=== PATIENT | female | born 1990 | race Two or more races ===

== ENCOUNTER 2017-09-01 11:00 | Observation (INO) | payer SELFPAY ==
[~2017-09-01] VITALS: Ht 157.5 cm; Wt 78.9 kg
[2017-09-01] MEDS ORDERED: LACTATED RINGER'S 1,000 ML IV ONE (11:57)
[2017-09-01] MEDS ORDERED: LACTATED RINGER'S 1,000 ML IV SCH (11:57)
[2017-09-01] MEDS ORDERED: NIF10C PO (12:00)
[2017-09-01] MEDS ORDERED: TERBUTALINE SULFATE 1 MG/ML 1ML VIAL SC ONE (12:00)
[2017-09-01] MEDS ORDERED: PREN-129 PO (12:00)
[2017-09-01] MEDS: TERBUTALINE SULFATE 1 MG/ML 1ML VIAL SC SCH ×2 (12:10→12:50)
[2017-09-01] MEDS ORDERED: BETAMETHASONE ACET (6MG/ML) 5ML VIAL ONE (14:22)
[2017-09-01] MEDS ORDERED: BETAMETHASONE ACET (6MG/ML) 5ML VIAL IM ONE (14:30)
== END 2017-09-01 14:55 | disposition home or self-care (01) | DRG 778 ==
LOC: LDRP 11:00
PROVIDERS: ADMIT Obstetrics & Gynecology; ATTEND Obstetrics & Gynecology
DX: O60.03 Preterm labor without delivery, third trimester (principal); O26.893 Other specified pregnancy related conditions, third trimester; O62.9 Abnormality of forces of labor, unspecified; R11.0 Nausea; Z3A.32 32 weeks gestation of pregnancy
CPT/HCPCS: 59025; 81002; 96372; G0378; J0702; J3105

== ENCOUNTER 2019-10-08 13:56 | Emergency (ER) | payer MEDICAID ==
[~2019-10-08] VITALS: Ht 167.6 cm; Wt 81.6 kg
[~2019-10-08 13:56] MED LIST: NIF10C PO; PREN-129 PO
[2019-10-08] MEDS ORDERED: SODIUM CHLORIDE 0.9% 1,000 ML IV ONE ×2 (14:01)
[2019-10-08] MEDS ORDERED: ETOMIDATE (2MG/ML) 20ML VIAL IV ONE ×3 (14:13→14:30)
[2019-10-08] MEDS ORDERED: MIDAZOLAM DRIP 50 mg/50mL 50 ML IV ONE (14:14)
[2019-10-08] MEDS ORDERED: SUCCINYLCHOLINE CHLORIDE 20 MG/ML 10ML VIAL IV ONE ×2 (14:20→14:30)
[2019-10-08] MEDS ORDERED: MIDAZOLAM DRIP 50 mg/50mL 50 ML IV SCH (14:24)
[2019-10-08 14:53] LABS: Basophils # (auto) 0.1 uL; Basophils % (auto) 0.4 % (0.0-2.0); Eosinophils # (auto) 0 uL; Hematocrit 40.5 % (36.0-46.0); Hemoglobin 13.5 g/dL (12.2-16.2); Lymphocytes # (auto) 0.7 uL; Lymphocytes % (auto) 4.3 % (10.0-50.0); Mean Corpuscular Hgb Conc. 33.2 g/dL (32.0-36.0); Mean Corpuscular Volume 90.2 fL (80.0-100.0); Monocytes # (auto) 0.5 uL; Neutrophils % (auto) 92.3 % (37.0-80.0); Platelet Count (auto) 281 10^3/uL (140-450); Red Blood Cells 4.49 10^6/uL (4.0-5.20); Red Cell Distribution Width 13.5 % (11.8-14.3); White Blood Cell 17.4 10^3/uL (4.4-10.8)
[2019-10-08 15:14] LABS: Albumin 3.8 g/dL (3.4-5.0); Anion Gap 9 (5-15); Blood Urea Nitrogen 7 mg/dL (7-18); Calcium 7.8 mg/dL (8.5-10.1); Carbon Dioxide 22 mmol/L (21-32); Chloride 104 mmol/L (98-107); Glucose 159 mg/dL (74-106); Potassium 3.7 mmol/L (3.5-5.1); Sodium 135 mmol/L (136-145)
[2019-10-08 15:20] LABS: Alanine Aminotransferase 32 U/L (13-56); Alkaline Phosphatase 72 U/L (45-117); Aspartate Aminotransferase 19 U/L (15-37); BUN/Creatinine Ratio 10.8; Bilirubin, Total 0.5 mg/dL (0.2-1.0); GFR African American 141 mL/min; GFR Non-African American 116 mL/min; Total Protein 7.7 g/dL (6.4-8.2)
[2019-10-08 15:28] VITALS: BP 150/78
== END 2019-10-08 15:43 | disposition short-term general hospital (02) ==
LOC: EDUNIT# 13:56 → EDBD 13:56 → ER 14:03
DX: I60.9 Nontraumatic subarachnoid hemorrhage, unspecified (principal); R41.82 Altered mental status, unspecified
CPT/HCPCS: 31500; 36415; 36556; 70450; 71045; 80053; 84484; 85025; 87070; 87205; 96360; 99291; J0330; J2250; J7030; 94002